=== PATIENT | male | born 1975 ===

== ENCOUNTER 2018-10-30 13:26 | Emergency (ER) | payer OTHER ==
[2018-10-30 13:43] VITALS: BP 148/98; PULSE 65; RESP 18; TEMP 98.4; O2SAT 99
--- NOTE | 2018-10-30 15:04 | RAD ---
PROCEDURE: Right foot Radiographs. HISTORY: pain and swelling to great toe and dorsal foot COMPARISON: None available. FINDINGS: BONES: No acute displaced fracture. Calcaneal enthesophyte/heel spur. JOINTS: No dislocation. SOFT TISSUES: Soft tissue swelling. No evidence of radiopaque foreign body. OTHER FINDINGS: None. IMPRESSION: Soft tissue swelling. No acute displaced fracture or dislocation. If symptoms persist, or if there is continued clinical concern, x-ray follow-up in 7-10 days should be considered.
[2018-10-30] MEDS ORDERED: Dexamethasone 4 mg/1 ml IM STA (15:12)
--- NOTE | 2018-10-30 15:22 | C.PDOC ---
History Of Present Illness 42 y/o male presents to the ED for evaluation of right toe pain since yesterday. Patient states he awoke with sudden onset pain and redness to right great toe. Patient denies any injury, however states he was wearing some tight work boots the day before. Denies any associated numbness, weakness, or rash. Time Seen by Provider: 10/30/18 13:47 Chief Complaint (Nursing): Lower Extremity Problem/Injury History Per: Patient History/Exam Limitations: no limitations Onset/Duration Of Symptoms: Days Current Symptoms Are (Timing): Still Present Past Medical History Reviewed: Historical Data, Nursing Documentation, Vital Signs Vital Signs: Last Vital Signs Temp 98.4 F 10/30/18 13:37 Pulse 65 10/30/18 13:37 Resp 18 10/30/18 13:37 BP 148/98 H 10/30/18 13:37 Pulse Ox 99 10/30/18 13:37 - Medical History PMH: No Chronic Diseases Surgical History: Hernia Repair Family History: States: No Known Family Hx - Social History Hx Alcohol Use: Yes Hx Substance Use: Yes - Immunization History Hx Tetanus Toxoid Vaccination: No Hx Influenza Vaccination: No Hx Pneumococcal Vaccination: No Review Of Systems Except As Marked, All Systems Reviewed And Found Negative. Constitutional: Negative for: Fever, Chills Musculoskeletal: Positive for: Foot Pain (Right great toe) Skin: Negative for: Rash Neurological: Negative for: Weakness, Numbness Physical Exam - Physical Exam Appears: Well, Non-toxic, No Acute Distress Skin: Warm, Dry Head: Atraumatic, Normacephalic Eye(s): bilateral: Normal Inspection Chest: Symmetrical Respiratory: No Accessory Muscle Use, Other (Speaking in full sentences) Extremity: Normal ROM (Full rom of right foot and toes), Tenderness (to the MTP joint of right 1st toe, mild), No Deformity, Swelling (Mild swelling to the MTP joint of right 1st toe, with erythema) Pulses: Left Dorsalis Pedis: Normal, Right Dorsalis Pedis: Normal Neurological/Psych: Oriented x3, Normal Motor, Normal Sensation Gait: Steady ED Course And Treatment O2 Sat by Pulse Oximetry: 99 (RA) Pulse Ox Interpretation: Normal Medical Decision Making Medical Decision Making: Plan: --Right foot x-ray --30 mg IM Toradol --8 mg IM Decadron X-ray is negative for acute fracture or dislocation. Patient notified of results. Plan is to discharge home, counseled patient regarding diagnosis and treatment. Disposition - Disposition Referrals: [facility] [Outside] Disposition: HOME/ ROUTINE Disposition Time: 15:19 Condition: STABLE Additional Instructions: Follow up with the medical doctor within 1-2 days. Return if worsened. 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 - Scribe Statement The provider has reviewed the documentation as recorded by the Lisetibjose m Barker All medical record entries made by the Lisetibe were at my direction and personally dictated by me. I have reviewed the chart and agree that the record accurately reflects my personal performance of the history, physical exam, medical decision making, and the department course for this patient. I have also personally directed, reviewed, and agree with the discharge instructions and disposition.
[2018-10-30] MEDS ORDERED: Dexamethasone 4 mg/1 ml ONE (15:30)
== END 2018-10-30 16:01 | disposition home or self-care (01) ==
LOC: C.ER 13:26
DX: M10.9 Gout, unspecified (principal)